=== PATIENT | male | born 1980 | race Caucasian/White ===

== ENCOUNTER 2025-09-19 09:07 | Emergency (ER) | payer OTHER ==
[~2025-09-19] VITALS: Ht 167.6 cm; Wt 63.5 kg
[2025-09-19] MEDS ORDERED: HYDROCODONE-AC1 EA10 PO (11:13)
[2025-09-19] MEDS ORDERED: IBUP800 PO (11:13)
== END 2025-09-19 11:23 | disposition home or self-care (01) ==
LOC: ER 09:07
DX: S22.42XA Multiple fractures of ribs, left side, initial encounter for closed fracture (principal); S32.592A Other specified fracture of left pubis, initial encounter for closed fracture; V29.91XA Electric (assisted) bicycle rider (driver) (passenger) injured in unspecified traffic accident, initial encounter; Z88.1 Allergy status to other antibiotic agents
CPT/HCPCS: 71101; 72170; 73552; 99284-25